=== PATIENT | male | born 1990 | race Caucasian/White ===

== ENCOUNTER → 2024-04-17 07:40 | Outpatient (REF) | payer OTHER, SELFPAY | LOC: EMG 07:40 | PROVIDERS: ATTENDING PHYSICIAN Family Medicine; FAMILY PHYSICIAN Family Medicine | DX: G56.91 Unspecified mononeuropathy of right upper limb (principal); R20.0 Anesthesia of skin | CPT/HCPCS: 95886; 95910 ==